=== PATIENT | female | born 1980 | race Caucasian/White ===

== ENCOUNTER → 2017-07-04 | Outpatient (CLI) | payer BC ==
--- NOTE | 2017-07-04 11:35 | DIAGNOSTIC IMAGING REPORT ---
R HAND MIN 3 VIEWS ROUTINE HISTORY: 37 years-old Female JOINT PAIN acute right hand pain without reported trauma COMPARISON: None available TECHNIQUE: 3 views of the right hand FINDINGS: There is no acute fracture, dislocation or significant degenerative changes. Soft tissues are unremarkable without opaque foreign body. IMPRESSION: No acute bony abnormality. The above report was generated using voice recognition software. It may contain grammatical, syntax or spelling errors. Electronically signed by: Alex Paulino M.D. 07/04/2017 11:33 AM Dictated Date/Time: 07/04/2017 11:32 AM
--- NOTE | 2017-07-04 11:35 | DIAGNOSTIC IMAGING REPORT ---
CHEST 2 VIEWS ROUTINE CLINICAL HISTORY: PALPITATIONS cardiac arrhythmia COMPARISON STUDY: No previous studies for comparison. FINDINGS: The bones soft tissues and hemidiaphragms are normal. The cardiomediastinal silhouette is normal. The lungs are clear. The pulmonary vasculature is normal. IMPRESSION: Negative chest. The above report was generated using voice recognition software. It may contain grammatical, syntax or spelling errors. Electronically signed by: Geo Cheung M.D. 07/04/2017 11:34 AM Dictated Date/Time: 07/04/2017 11:33 AM
== END | disposition home or self-care (01) ==
LOC: C.RAD1850 11:20
PROVIDERS: ATTEND Family Medicine
DX: M25.50 Pain in unspecified joint (principal); R00.2 Palpitations

== ENCOUNTER → 2017-07-30 | Outpatient (CLI) | payer BC ==
--- NOTE | 2017-07-30 09:17 | DIAGNOSTIC IMAGING REPORT ---
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 FINDINGS: There is no fracture or dislocation. Soft tissues are unremarkable. No radiopaque foreign bodies. The left clavicle is intact. IMPRESSION: Unremarkable left shoulder. Electronically signed by: Alber Rios M.D. 07/30/2017 9:15 AM Dictated Date/Time: 07/30/2017 9:13 AM
== END | disposition home or self-care (01) ==
LOC: C.RAD1850 09:02
PROVIDERS: ATTEND Internal Medicine Rheumatology
DX: M13.80 Other specified arthritis, unspecified site (principal); M25.512 Pain in left shoulder; M89.8X9 Other specified disorders of bone, unspecified site

== ENCOUNTER → 2017-08-05 | Outpatient (CLI) | payer BC ==
--- NOTE | 2017-08-05 08:53 | DIAGNOSTIC IMAGING REPORT ---
L UPPER EXT JOINT WITHOUT CLINICAL HISTORY: 37 years-old Female presenting with M25.512 Left shoulder painZ79.899 Encounter for long-term (curre. TECHNIQUE: Multisequence, multiplanar MR imaging of the left shoulder was performed without the use of intravenous contrast. IV contrast: None. COMPARISON: Plain radiograph from 07/30/2017. FINDINGS: Localizer images: Unremarkable. No bony edema. Mild articular cartilage thinning along the inferior humeral head is not full-thickness. Articular cartilage of the glenoid is grossly preserved. The labrum is intact. Slight increased signal intensity within the insertional fibers and critical zone of the supraspinatus suggesting tendinosis. The infraspinatus tendon is intact as is the teres minor tendon. The subscapularis tendon also demonstrates thickening and increased signal intensity consistent with tendinosis. Transverse ligament portion is intact. The long head of the biceps tendon is well seated within the intertubercular groove. Short head of the biceps tendon intact. No significant joint effusion. No fluid in the subacromial subdeltoid bursa. Acromioclavicular joint normal. Normal muscle bulk and signal intensity of the musculature. IMPRESSION: 1. Tendinosis of the supraspinatus and subscapularis tendons. No evidence of rotator cuff tear. 2. Mild articular cartilage thinning of the inferior humeral head. Electronically signed by: Rafita Bains M.D. 08/05/2017 8:52 AM Dictated Date/Time: 08/05/2017 8:48 AM
== END | disposition home or self-care (01) ==
LOC: C.MRI 07:56
PROVIDERS: ATTEND Internal Medicine Rheumatology
DX: M25.60 Stiffness of unspecified joint, not elsewhere classified (principal); Z79.899 Other long term (current) drug therapy; M25.512 Pain in left shoulder